=== PATIENT | female | born 1945 | race Two or more races ===

== ENCOUNTER 2019-04-09 18:22 | Emergency (ER) | payer BC, OTHER ==
[~2019-04-09] VITALS: Ht 144.8 cm; Wt 50.8 kg
[2019-04-09] MEDS ORDERED: SODIUM CHLORIDE 0.9% 500 ML IV ONE (18:27)
[2019-04-09 18:59] LABS: Basophils # (auto) 0 uL; Basophils % (auto) 0.2 % (0.0-2.0); Eosinophils # (auto) 0 uL; Eosinophils % (auto) 0.4 % (0.0-7.0); Hematocrit 38.3 % (36.0-46.0); Hemoglobin 12.6 g/dL (12.2-16.2); Lymphocytes # (auto) 2.1 uL; Lymphocytes % (auto) 21.6 % (10.0-50.0); Mean Corpuscular Volume 93.7 fL (80.0-100.0); Monocytes # (auto) 0.5 uL; Monocytes % (auto) 5.1 % (0.0-12.0); Neutrophils # (auto) 7.1 uL; Neutrophils % (auto) 72.7 % (37.0-80.0); Nucleated Red Blood Cells % 0.1 %; Platelet Count (auto) 240 10^3/uL (140-450); Red Blood Cells 4.09 10^6/uL (4.0-5.20); Red Cell Distribution Width 13.6 % (11.8-14.3); White Blood Cell 9.8 10^3/uL (4.4-10.8)
[2019-04-09 19:12] LABS: Alanine Aminotransferase 31 U/L (13-56); Albumin 3.7 g/dL (3.4-5.0); Anion Gap 7 (5-15); Aspartate Aminotransferase 35 U/L (15-37); BUN/Creatinine Ratio 17.5; Blood Urea Nitrogen 11 mg/dL (7-18); Calcium 8.9 mg/dL (8.5-10.1); Carbon Dioxide 24 mmol/L (21-32); Chloride 107 mmol/L (98-107); GFR African American 119 mL/min; GFR Non-African American 99 mL/min; Glucose 106 mg/dL (74-106); Potassium 3.9 mmol/L (3.5-5.1); Sodium 138 mmol/L (136-145)
[2019-04-09 19:17] LABS: Alkaline Phosphatase 63 U/L (45-117); Bilirubin, Total 0.6 mg/dL (0.2-1.0); Total Protein 7.8 g/dL (6.4-8.2)
[2019-04-09 19:39] VITALS: BP 153/84
== END 2019-04-09 19:45 | disposition home or self-care (01) ==
LOC: ER 18:29
DX: I10 Essential (primary) hypertension (principal); R42 Dizziness and giddiness; M19.90 Unspecified osteoarthritis, unspecified site
CPT/HCPCS: 36415; 70450; 80053; 83735; 84484; 85025